=== PATIENT | female | born 1980 | race Caucasian/White ===

== ENCOUNTER 2019-11-08 16:31 | Emergency (ER) | payer OTHER, MEDICAID, SELFPAY ==
[2019-11-08 16:56] VITALS: BP 115/84; PULSE 100; RESP 16; TEMP 36.8; O2SAT 99
--- NOTE | 2019-11-08 17:54 | ED.URI ---
HPI - URI/Sore Throat General Chief Complaint: Upper Respiratory Infection Stated Complaint: ears chills and possible bladder infect Time Seen by Provider: 11/08/19 17:54 Source: patient and RN notes reviewed Mode of arrival: ambulatory Limitations: no limitations History of Present Illness HPI Narrative: 39-year-old female presents with concern for multiple complaints. She reports urinary frequency, right low back pain. Reports history of urinary tract infections and chronic cystitis without bacteria. Reports of symptoms started 2 days ago. She also reports more than 1 week history of sinus congestion, postnasal drip, purulent drainage, headache, ear fullness, ear pain. Reports taking nods-dht-rtuelqk medications with no relief MD elicited complaint: nasal congestion and other (Dysuria) Related Data Home Medications Medication Instructions Recorded Confirmed famotidine 20 mg PO BID 11/08/19 11/08/19 folic acid 1 mg PO DAILY 11/08/19 11/08/19 gabapentin 100 mg PO TID 11/08/19 11/08/19 hydroxyzine HCl 25 mg PO BID PRN 11/08/19 11/08/19 meloxicam 15 mg PO DAILY 11/08/19 11/08/19 methotrexate sodium 2.5 mg PO WEEKLY 11/08/19 11/08/19 nortriptyline 50 mg PO DAILY 11/08/19 11/08/19 Allergies Allergy/AdvReac Type Severity Reaction Status Date / Time Sulfa (Sulfonamide Allergy Intermediate Rash Verified 02/03/18 19:21 Antibiotics) ranitidine Allergy Unknown Itching Verified 02/03/18 19:21 Review of Systems Review of Systems: Narrative: CONSTITUTIONAL: Reports malaise, chills, sweats, tactile fever. EYES: Denies visual changes, redness, or discharge. ENT: Reports rhinorrhea, congestion, sinus pain, otalgia and sore throat. CARDIOVASCULAR: Denies chest pain, palpitations, or edema. RESPIRATORY: Reports cough. Denies dyspnea. GASTROINTESTINAL: Denies abdominal pain, nausea, vomiting, diarrhea : Reports urine frequency, right low back pain SKIN: Denies rash or itching. MUSCULOSKELETAL: Denies myalgia. NEUROLOGIC: Denies headache. All systems reviewed & are unremarkable except as noted in HPI and below PMFSH Comments At time of signature, agree with nursing past medical, surgical, social and family history. There is no relevant family history pertinent to the presenting complaint Exam Narrative: Exam Narrative: GENERAL: Well-appearing, well-nourished, and in no acute distress. HEAD: Normocephalic EYES: PERRLA, conjunctivae clear ENT: Nares clear, turbinates edematous and erythematous, purulent discharge, sinus tenderness. Mucous membranes moist. TM pearly esparza with dull light reflex bilaterally; no tragal tenderness. Oropharynx not erythematous without lesions. Tonsils not enlarged and without exudate, no drooling, no hoarseness, no trismus. NECK: Supple. No lymphadenopathy CHEST: Clear to auscultation, breath sounds equal. No wheezing, rhonchi, rales, or stridor. No respiratory distress, speaks in full sentences. HEART: Regular rate and rhythm. No murmur heard. Normal peripheral pulses. ABDOMEN: Soft, nontender upon palpation, nondistended, normal active bowel sounds, no palpable or pulsatile masses, no guarding. No CVA tenderness SKIN: Warm, dry, no rash. NEURO: Alert and oriented x3. PSYCH: Normal mood and affect Course Course Emergency Course: Patient is aware of diagnosis, understands and agrees to treatment plan. Anticipatory guidance given. Patient agrees to follow-up as directed and is aware of reasons to seek care at the emergency department. Portions of this record may have been created with voice recognition software Vital Signs Vital signs: Vital Signs Temperature 98.3 F 11/08/19 16:56 Pulse Rate 100 11/08/19 16:56 Respiratory Rate 16 11/08/19 16:56 Blood Pressure 115/84 11/08/19 16:56 Pulse Oximetry 99 11/08/19 16:56 Temperature 98.3 F 11/08/19 16:56 Pulse Rate 100 11/08/19 16:56 Respiratory Rate 16 11/08/19 16:56 Blood Pressure 115/84 11/08/19 16:56 Pulse Oximetry 99
== END 2019-11-08 18:05 | disposition home or self-care (01) ==
PROVIDERS: Emergency Provider Nurse Practitioner
DX: N30.20 Other chronic cystitis without hematuria (principal); J01.90 Acute sinusitis, unspecified
CPT/HCPCS: 81003; 87804; 99213; G0463

== ENCOUNTER → 2020-01-08 11:35 | Outpatient (CLI) | payer OTHER, MEDICAID, SELFPAY ==
--- NOTE | ~2020-01-08 | XR_ITS ---
XR foot LT min 3V 01/08/2020 11:50 INDICATION: Left foot pain PROCEDURE: 4 views left foot COMPARISON: No prior studies for comparison. FINDINGS: Fracture, dislocation or subluxation is not identified. There are small degenerative calcan eal enthesophytes. The soft tissues appear within normal limits. No foreign bodies are identified. IMPRESSION: 1: NO ACUTE BONE OR JOINT ABNORMALITY IDENTIFIED. Reviewed, dictated and finalized at location A.
== END ==
PROVIDERS: PCP Family Medicine; Visit Provider Family Medicine
DX: M79.673 Pain in unspecified foot (principal)
CPT/HCPCS: 73630

== ENCOUNTER → 2020-03-18 15:16 | Outpatient (CLI) | payer OTHER, MEDICAID, SELFPAY ==
--- NOTE | ~2020-03-18 | XR_ITS ---
EXAMINATION: XR chest 2V DATE: 03/18/2020 15:41 INDICATION: Dyspnea, unspecified TECHNIQUE: PA and lateral views of the chest are obtained. COMPARISON: None available FINDINGS: The lungs are free of acute opacities. There is no pleural effusion or pneumothorax. The ca rdiomediastinal silhouette is normal. There is mild dextrocurvature of the midthoracic spine. IMPRESSION: 1. No acute cardiopulmonary abnormality. Reviewed, dictated and finalized at location A.
== END ==
PROVIDERS: PCP Family Medicine; Visit Provider Family Medicine
DX: R06.00 Dyspnea, unspecified (principal)
CPT/HCPCS: 71046

== ENCOUNTER 2020-04-11 11:14 | Outpatient (CLI) | payer OTHER, MEDICAID, SELFPAY ==
[2020-04-11 13:51] LABS: Anion Gap 13.7 mmol/L (7-16); Blood Urea Nitrogen 11 mg/dL (7-17); Calcium 9.1 mg/dL (8.4-10.2); Carbon Dioxide 24 mmol/L (22-30); Chloride 103 mmol/L (98-107); Estimated Glomerular Filt Rate > 60; Glucose 94 mg/dL (65-105); Magnesium 2.2 mg/dL (1.6-2.3); Potassium 3.7 mmol/L (3.4-5.0); Sodium 137 mmol/L (137-145)
[2020-04-11 13:52] LABS: Basophils Percent Auto 0.5 % (0.2-1.2); Eosinophils Absolute Auto 0.1 K/mm3 (0-0.3); Eosinophils Percent Auto 1.1 % (0-4.4); Hematocrit 41.5 % (37.0-47.0); Hemoglobin 13.2 g/dL (12.0-15.0); Immature Granulocyte Absolute 0.02 K/mm3 (0.00-0.031); Immature Granulocyte Percent A 0.3 % (0-0.5); Lymphocytes Absolute Auto 1.55 K/mm3 (0.9-3.2); Lymphocytes Percent Auto 23.6 % (18.3-44.2); Mean Corpuscular HGB Conc 31.8 g/dl (32-36); Mean Corpuscular Hemoglobin 26.7 pg (26-34); Mean Platelet Volume 10.8 fl (7.4-10.4); Monocytes Absolute Auto 0.7 K/mm3 (0.1-0.6); Monocytes Percent Auto 10.2 % (2.6-8.5); Neutrophils Absolute Auto 4.2 K/mm3 (1.3-6.7); Neutrophils Percent Auto 64.3 % (45.5-73.1); Platelet Count Result 306 k/mm3 (150-375); Red Blood Count 4.94 M/mm3 (4.2-5.4); Red Cell Distribution Width 13.7 % (11.5-14.5); White Blood Count 6.6 K/mm3 (4.5-10.0)
[2020-04-11 13:56] LABS: Hemoglobin A1C 5.4 % (<5.7)
[2020-04-11 14:07] LABS: Beta HCG Quantitative < 2.39 mIU/ML
[2020-04-11 14:22] LABS: Thyroid Stimulating Hormone 0.556 uIU/mL (0.465-4.680)
[2020-04-16 12:32] LABS: Reference Lab Test Result Negative
== END 2020-04-11 11:15 | disposition home or self-care (01) ==
LOC: ANHLAB 11:16
PROVIDERS: PCP Family Medicine; Visit Provider Family Medicine
DX: R53.83 Other fatigue (principal); R06.02 Shortness of breath; E34.9 Endocrine disorder, unspecified; Z79.899 Other long term (current) drug therapy; E07.9 Disorder of thyroid, unspecified; L40.50 Arthropathic psoriasis, unspecified; T78.40XA Allergy, unspecified, initial encounter; R73.9 Hyperglycemia, unspecified
CPT/HCPCS: 36415; 80048; 83036; 83735; 84443; 84702; 85025; 86769

== ENCOUNTER 2020-04-17 15:03 | Outpatient (CLI) | payer OTHER, MEDICAID, SELFPAY ==
--- NOTE | ~2020-04-17 | CT_ITS ---
EXAMINATION: CT sinus wo con DATE: 04/17/2020 15:30 INDICATION: Congestion, shortness of breath, cough, ear pain. Chronic sinusitis. TECHNIQUE: Computed tomography angiography (CTA) of the chest was performed with 100 mL Omnipaque-350 intravenous contrast timed to evaluate the pulmonary arteries. Coronal maximum intensity projection 3D-reconstructions were created by the technologist. Automated exposure control and iterative reconst ruction technique were employed. Exam dose: 317.41 mGy-cm total exam DLP. Paranasal sinuses COMPARISON: None. FINDINGS: There is leftward deviation of the nasal septum. There is interlamellar cell of the middle nasal turbinates. The mesentery visceromegaly prominent but relatively symmetric in size. The ostiomeatal units are patent. There is an approximately 1.3 cm soft tissue opacity in the right frontal ostium. The frontal sinuses are otherwise unremarkable. There is an approximately 9 mm mucous retention cyst or polyp of the right maxillary sinus at the pos terior margin of the right maxillary ostium and a small mucus retention cyst or polyp along the roof of the right maxillary sinus. The left maxillary sinus is clear. The ethmoid air cells and left sphen oid sinuses are unremarkable. There is a small mucus retention cyst cyst or polyp along the anterolat eral aspect of the right sphenoid sinus.. The mastoid air cells are normally developed and aerated. IMPRESSION: Polyps or mucous retention cysts of right frontal sinus, right maxillary and right sphen oid sinuses Leftward deviation of the nasal septum Reviewed, dictated and finalized at Location A. Reviewed, dictated and finalized at location B. IMPRESSION: Polyps or mucous retention cysts of right frontal sinus, right max illary and right sphenoid sinuses Leftward deviation of the nasal septum
== END 2020-04-17 15:04 | disposition home or self-care (01) ==
PROVIDERS: PCP Family Medicine; Visit Provider Family Medicine
DX: J32.9 Chronic sinusitis, unspecified (principal); J34.2 Deviated nasal septum
CPT/HCPCS: 70486

== ENCOUNTER 2020-04-25 09:54 | Outpatient (CLI) | payer OTHER, MEDICAID, SELFPAY ==
--- NOTE | ~2020-04-25 | XR_ITS ---
XR hand BI arthritis min 3V DATE: 04/25/2020 10:31 INDICATION: Hand pain. Unspecified osteoarthritis. TECHNIQUE: 4 views of each hand COMPARISON: None FINDINGS: No fracture or dislocation, periosteal reaction or bone destruction, erosive change or jun drocalcinosis. Joint spaces are preserved. IMPRESSION: No significant abnormality Reviewed, dictated and finalized at location A. IMPRESSION: No significant abnormality
--- NOTE | ~2020-04-25 | XR_ITS ---
XR sacroiliac joints min 3V DATE: 04/25/2020 10:31 INDICATION: Arthropathic psoriasis TECHNIQUE: AP and bilateral oblique views COMPARISON: None FINDINGS: There is asymmetric mild sclerosis along the right sacroiliac joint which is consistent wit h nonspecific mild right sacroiliitis. The left sacroiliac joint is unremarkable. No sacral fracture or bone destruction is evident. IMPRESSION: Asymmetric sclerosis at the right sacroiliac joint consistent with nonspecific unilateral right sacroiliitis Reviewed, dictated and finalized at Location A. Reviewed, dictated and finalized at location A.
--- NOTE | ~2020-04-25 | XR_ITS ---
XR foot LT standing 2V DATE: 04/25/2020 10:31 INDICATION: Heel pain for one week. No injury. TECHNIQUE: Weightbearing AP and lateral views COMPARISON: 01/08/2020 left foot FINDINGS: There is mild posterior and plantar calcaneal enthesopathy, without associated periostitis or erosive change. No fracture or dislocation, periosteal reaction or bone destruction of the left foot. Joint spaces ar e preserved. No erosions. IMPRESSION: Mild plantar and posterior calcaneal enthesopathy Reviewed, dictated and finalized at location A.
--- NOTE | ~2020-04-25 | XR_ITS ---
XR foot RT standing 2V DATE: 04/25/2020 10:31 INDICATION: Arthropathic psoriasis. TECHNIQUE: Weightbearing AP and lateral views COMPARISON: None FINDINGS: No fracture or dislocation, periosteal reaction or bone destruction. IMPRESSION: Negative Reviewed, dictated and finalized at location A. IMPRESSION: Negative
[2020-04-25 11:10] LABS: Rheumatoid Factor < 8.6 IU/ML (<12)
[2020-04-25 12:02] LABS: Hepatitis B Surface Antigen Negative (Negative)
[2020-04-25 12:20] LABS: Hepatitis B Surface Antibody > 1000.00 s/c; Hepatitis C Virus Antibody Negative (Negative)
[2020-04-25 13:06] LABS: Hepatitis B Surface Anti Res Positive
[2020-04-29 05:04] LABS: Angiotensin Converting Enzyme 24 U/L (9-67)
[2020-04-29 11:20] LABS: Anti Cyclic Citrullinated Pept <16 Units (<20)
[2020-04-29 19:15] LABS: Hepatitis B Core Ab Total Nonreactive (Nonreactive)
[2020-05-01 07:01] LABS: Anti Nuclear Antibody Pattern Nuclear, Speckled; Anti Nuclear Antibody Titer 1:40 (Negative)
== END 2020-04-25 09:55 | disposition home or self-care (01) ==
LOC: ANHIMG 09:58
PROVIDERS: PCP Family Medicine; Visit Provider Internal Medicine
DX: L40.50 Arthropathic psoriasis, unspecified (principal); M19.90 Unspecified osteoarthritis, unspecified site; M77.32 Calcaneal spur, left foot
CPT/HCPCS: 36415; 72202; 73130; 73620; 82164; 86038; 86039; 86200; 86430; 86704; 86706; 86803; 87340

== ENCOUNTER 2020-05-02 15:09 | Outpatient (CLI) | payer OTHER, MEDICAID, SELFPAY ==
[2020-05-02 15:26] LABS: Basophils Percent Auto 0.3 % (0.2-1.2); Eosinophils Absolute Auto 0.1 K/mm3 (0-0.3); Eosinophils Percent Auto 0.7 % (0-4.4); Hematocrit 41.1 % (37.0-47.0); Hemoglobin 13.1 g/dL (12.0-15.0); Immature Granulocyte Absolute 0.06 K/mm3 (0.00-0.031); Immature Granulocyte Percent A 0.7 % (0-0.5); Lymphocytes Absolute Auto 2.05 K/mm3 (0.9-3.2); Lymphocytes Percent Auto 22.5 % (18.3-44.2); Mean Corpuscular HGB Conc 31.9 g/dl (32-36); Mean Corpuscular Hemoglobin 27.1 pg (26-34); Mean Corpuscular Volume 84.9 fl (80-100); Mean Platelet Volume 9.9 fl (7.4-10.4); Monocytes Absolute Auto 0.8 K/mm3 (0.1-0.6); Monocytes Percent Auto 8.4 % (2.6-8.5); Neutrophils Absolute Auto 6.2 K/mm3 (1.3-6.7); Neutrophils Percent Auto 67.4 % (45.5-73.1); Platelet Count Result 341 k/mm3 (150-375); Red Blood Count 4.84 M/mm3 (4.2-5.4); Red Cell Distribution Width 13.6 % (11.5-14.5); White Blood Count 9.1 K/mm3 (4.5-10.0)
[2020-05-09 00:53] LABS: Immunoglobulin E 51 kU/L (<=114)
== END 2020-05-02 15:10 | disposition home or self-care (01) ==
LOC: ANHLAB 15:12
PROVIDERS: PCP Family Medicine; Visit Provider Internal Medicine Critical Care Medicine
DX: R06.02 Shortness of breath (principal)
CPT/HCPCS: 36415; 82785; 85025

== ENCOUNTER 2020-05-19 11:26 | Emergency (ER) | payer OTHER, MEDICAID, SELFPAY ==
[2020-05-19 11:27] VITALS: BP 110/70; PULSE 87; RESP 21; TEMP 36.4; O2SAT 100
[2020-05-19 12:14] LABS: Basophils Percent Auto 0.3 % (0.2-1.2); Eosinophils Absolute Auto 0.1 K/mm3 (0-0.3); Eosinophils Percent Auto 0.8 % (0-4.4); Hematocrit 36.8 % (37.0-47.0); Hemoglobin 11.6 g/dL (12.0-15.0); Immature Granulocyte Absolute 0.03 K/mm3 (0.00-0.031); Immature Granulocyte Percent A 0.4 % (0-0.5); Lymphocytes Percent Auto 21.9 % (18.3-44.2); Mean Corpuscular HGB Conc 31.5 g/dl (32-36); Mean Corpuscular Hemoglobin 26.9 pg (26-34); Mean Corpuscular Volume 85.2 fl (80-100); Mean Platelet Volume 10.2 fl (7.4-10.4); Monocytes Absolute Auto 0.7 K/mm3 (0.1-0.6); Monocytes Percent Auto 9.1 % (2.6-8.5); Neutrophils Absolute Auto 5.2 K/mm3 (1.3-6.7); Neutrophils Percent Auto 67.5 % (45.5-73.1); Platelet Count Result 314 k/mm3 (150-375); Red Blood Count 4.32 M/mm3 (4.2-5.4); Red Cell Distribution Width 13.9 % (11.5-14.5); White Blood Count 7.8 K/mm3 (4.5-10.0)
[2020-05-19] MEDS: ONDANSETRON INJ 4 MG/2 ML VIAL IV PUSH (12:15)
[2020-05-19] MEDS: FAMOTIDINE 20 MG/2 ML VIAL IV PUSH (12:15)
[2020-05-19] MEDS: SODIUM CHLORIDE 0.9% IV 1,000 ML 999 ML IV CONT (12:16)
[2020-05-19 12:25] LABS: Alanine Aminotransferase 36 U/L (4-35); Alkaline Phosphatase 76 U/L (38-126); Anion Gap 5 mmol/L (8-16); Aspartate Amino Transferase 21 U/L (14-36); Bilirubin,Total 0.3 mg/dL (0.2-1.3); Blood Urea Nitrogen 10 mg/dL (7-17); Calcium 8.8 mg/dL (8.4-10.2); Carbon Dioxide 25 mmol/L (22-30); Chloride 106 mmol/L (98-107); Estimated CRCL calculation 76 ml/min; Estimated Glomerular Filt Rate > 60; Glucose 99 mg/dL (65-105); Lipase 194 U/L (23-300); Sodium 136 mmol/L (137-145)
[2020-05-19 12:39] LABS: Add Urine Microscopic? YES; Appearance Urine Cloudy (Clear); Bacteria Urine 4+ /hpf; Bilirubin Urine Negative (Negative); Blood Urine 1+ (Negative); Color Urine Yellow (Yellow); Glucose Urine UA Negative (Negative); Ketones Urine Negative (Negative); Leukocyte Esterase Ur Negative LEU/UL (Negative); Mucus Urine Heavy /lpf; Nitrate Urine Negative (Negative); Protein Urine 1+ mg/dL (Negative); RBC Urine 0-2 /hpf (0-2); Specific Grav Ur 1.015 (1.001-1.035); Squamous Epithelial Cell Urine Many /hpf (Few); Urobilinogen Urine Negative mg/dL (<2.0)
--- NOTE | 2020-05-19 14:06 | ED.ABDPAIN ---
HPI - Abdominal Pain General Chief Complaint: Abdominal Pain <ADRIEL Mitchell Last Filed: 05/19/20 14:10> Stated Complaint: ABD Pain <ADRIEL Mitchell Last Filed: 05/19/20 14:10> Time Seen by Provider: 05/19/20 11:33 <ADRIEL Mitchell Last Filed: 05/19/20 14:10> Source: patient <ADRIEL Mitchell Last Filed: 05/19/20 14:10> Mode of arrival: ambulatory <ADRIEL Mitchell Last Filed: 05/19/20 14:10> Limitations: no limitations <ADRIEL Mitchell Last Filed: 05/19/20 14:10> History of Present Illness HPI narrative: Patient is a 40-year-old female who presents to emergency department for evaluation of abdominal pain that worsened today has chronic abdominal pain that has been present for years has seen multiple specialists for this with no etiology notes that it is worse with food patient also notes discomfort in the chest which is also chronic in nature patient on arrival notes discomfort in the upper abdomen denies vomiting diarrhea or other complaints and is in no distress upon arrival but does appear uncomfortable <ADRIEL Mitchell Last Filed: 05/19/20 14:10> Related Data Home Medications: Home Medications Medication Instructions Recorded Confirmed cholecalciferol (vitamin D3) 25 25 mcg PO DAILY 12/27/19 04/25/20 mcg (1,000 unit) capsule polyethylene glycol 3350 17 17 gm PO DAILY 12/27/19 04/25/20 gram/dose oral powder calcium carbonate 600 mg calcium 600 mg PO DAILY 05/02/20 (1,500 mg) tablet magnesium 250 mg tablet 250 mg PO DAILY 05/02/20 mecobalamin (vitamin B12) 5,000 2,500 mcg PO DAILY each 05/02/20 mcg lozenge multivitamin 1 cap PO DAILY 05/02/20 famotidine DAILY 05/19/20 <ADRIEL Mitchell Last Filed: 05/19/20 14:10> Allergies/Adverse Reactions: Allergies Allergy/AdvReac Type Severity Reaction Status Date / Time Sulfa (Sulfonamide Allergy Intermediate Rash Verified 05/19/20 12:19 Antibiotics) ranitidine Allergy Unknown Itching Verified 05/19/20 12:19 hydrocodone [From Vicodin] AdvReac Unknown Insomnia Verified 05/19/20 12:19 <Ash Santana PA-C - Last Filed: 05/19/20 14:10> Review of Systems Review of Systems: All systems reviewed & are unremarkable except as noted in HPI and below <Ash Santana PA-C - Last Filed: 05/19/20 14:10> PMFSH Past Medical History Medical History: Medical History Allergies Endometriosis Hypersomnia Interstitial cystitis Lump in armpit Lung nodule Psoriatic arthritis Sinusitis Snoring Thyroid disorder <Ash Santana PA-C - Last Filed: 05/19/20 14:10> Surgical History Surgical History: Surgical History Delivery by section <Ash Santana PA-C - Last Filed: 05/19/20 14:10> Social History Social History: Social History Social History: , one daughter, works at [employer]. Smoking status: Never smoker Alcohol intake: current Additional occupation/education comments: [employer]ors [employer] Gender identity (if verbalized by the patient): Female <Ash Santana PA-C - Last Filed: 05/19/20 14:10> Exam Narrative: Exam Narrative: GENERAL: Well-appearing, well-nourished, and in no acute distress. HEAD: Normocephalic, atraumatic. EYES: PERRLA and EOMI. ENT: Nares clear, no rhinorrhea or epistaxis. Mucous membranes moist. CHEST: Clear to auscultation. No respiratory distress. No wheezes rales or rhonchi HEART: Regular rate and rhythm. No murmur heard. Normal peripheral pulses. ABDOMEN: Soft, tenderness in the upper quadrants of the abdomen no rebound or guarding, nondistended, normal active bowel sounds. EXTREMITIES: Normal range of motion. No edema. SKIN: Warm, dry, no rash. NEURO: No focal deficits. Alert and or
[2020-05-19] MEDS: KETOROLAC 30 MG/ML VIAL (*BKC) IV PUSH (14:18)
[2020-05-19 14:19] VITALS: BP 110/80; PULSE 80; RESP 16; O2SAT 100
== END 2020-05-19 14:30 | disposition home or self-care (01) ==
PROVIDERS: Emergency Medicine Emergency Medical Services; Emergency Provider Emergency Medicine; PCP Family Medicine
DX: R10.9 Unspecified abdominal pain (principal)
CPT/HCPCS: 36415; 80053; 81001; 83690; 85025; 96361; 96374; 96375; 99284; J1885; J2405; J7030

== ENCOUNTER 2020-05-24 13:04 | Emergency (ER) | payer OTHER, MEDICAID, SELFPAY ==
--- NOTE | ~2020-05-24 | US_ITS ---
EXAMINATION: US right upper quadrant DATE: 05/24/2020 15:01 INDICATION: Right upper quadrant abdominal pain. Nausea and diarrhea. TECHNIQUE: Multiple grayscale and Doppler ultrasound images of the abdomen were obtained. COMPARISON: None FINDINGS: The visualized portions of the head, body, and tail of the pancreas are normal. The liver i s normal without focal lesion. There is normal flow in main portal vein. The gallbladder is normal in size. No gallstones or gallbladder wall thickening. There was no sonographic Miller sign. The common duct is normal and measures 3 mm. IMPRESSION: 1. Normal right upper quadrant ultrasound. Reviewed, dictated and finalized at location A.
--- NOTE | ~2020-05-24 | CT_ITS ---
EXAMINATION: CT abdomen pelvis w con DATE: 05/24/2020 17:55 INDICATION: Epigastric abdominal pain. TECHNIQUE: Computed tomography (CT) of the abdomen and pelvis was performed with 100 mL Omnipaque 350 intravenous contrast. Automated exposure control and iterative reconstruction technique were employe d. The dose-length product was 425.25 mGy-cm. COMPARISON: Ultrasound 05/24/2020 FINDINGS: The visualized portions of the lung bases are clear without pneumonia or pleural effusion. The heart size is normal. No pericardial effusion. The liver, gallbladder, spleen, pancreas, and adre nal glands are normal. There are cysts in the kidneys measuring up to 5 mm on the left. There are no dilated loops of bowel. The appendix is normal. There are no pathologically enlarged lymph nodes. The re is no free intraperitoneal fluid. There is a small right inguinal hernia containing fat. There is levoscoliosis of thoracolumbar spine. IMPRESSION: 1. Small right inguinal hernia containing fat. Reviewed, dictated and finalized at location A.
[2020-05-24 13:09] VITALS: BP 118/86; PULSE 77; RESP 18; TEMP 36.8; O2SAT 100
[2020-05-24 14:03] LABS: Basophils Percent Auto 0.4 % (0.2-1.2); Eosinophils Absolute Auto 0.1 K/mm3 (0-0.3); Eosinophils Percent Auto 1.1 % (0-4.4); Hemoglobin 11.1 g/dL (12.0-15.0); Immature Granulocyte Absolute 0.04 K/mm3 (0.00-0.031); Immature Granulocyte Percent A 0.5 % (0-0.5); Lymphocytes Absolute Auto 1.74 K/mm3 (0.9-3.2); Lymphocytes Percent Auto 23.3 % (18.3-44.2); Mean Corpuscular HGB Conc 31.7 g/dl (32-36); Mean Corpuscular Hemoglobin 26.8 pg (26-34); Mean Corpuscular Volume 84.5 fl (80-100); Mean Platelet Volume 9.7 fl (7.4-10.4); Monocytes Absolute Auto 0.7 K/mm3 (0.1-0.6); Monocytes Percent Auto 9.9 % (2.6-8.5); Neutrophils Absolute Auto 4.9 K/mm3 (1.3-6.7); Neutrophils Percent Auto 64.8 % (45.5-73.1); Platelet Count Result 284 k/mm3 (150-375); Red Blood Count 4.14 M/mm3 (4.2-5.4); White Blood Count 7.5 K/mm3 (4.5-10.0)
[2020-05-24 14:10] LABS: Add Urine Microscopic? NO; Appearance Urine Clear (Clear); Bilirubin Urine Negative (Negative); Blood Urine Negative (Negative); Color Urine Yellow (Yellow); Glucose Urine UA Negative (Negative); Ketones Urine Negative (Negative); Leukocyte Esterase Ur Negative LEU/UL (Negative); Mucus Urine Rare /lpf; Nitrate Urine Negative (Negative); Protein Urine Negative (Negative); Specific Grav Ur 1.012 (1.001-1.035); Squamous Epithelial Cell Urine Many /hpf (Few); Urobilinogen Urine Negative mg/dL (<2.0); WBC Urine 0-3 /hpf
[2020-05-24 14:17] LABS: Alanine Aminotransferase 33 U/L (4-35); Albumin Level 3.9 g/dL (3.5-5.1); Alkaline Phosphatase 77 U/L (38-126); Anion Gap 7 mmol/L (8-16); Aspartate Amino Transferase 21 U/L (14-36); Bilirubin,Total 0.4 mg/dL (0.2-1.3); Blood Urea Nitrogen 11 mg/dL (7-17); Calcium 8.4 mg/dL (8.4-10.2); Carbon Dioxide 23 mmol/L (22-30); Chloride 107 mmol/L (98-107); Estimated CRCL calculation 66 ml/min; Estimated Glomerular Filt Rate > 60; Glucose 97 mg/dL (65-105); Lipase 143 U/L (23-300); Potassium 3.9 mmol/L (3.4-5.0); Sodium 137 mmol/L (137-145)
--- NOTE | 2020-05-24 15:15 | ED.ABDPAIN ---
HPI - Abdominal Pain General Chief Complaint: Abdominal Pain Stated Complaint: CP/abd p/back pain Time Seen by Provider: 05/24/20 13:14 Source: patient Mode of arrival: ambulatory Limitations: no limitations History of Present Illness HPI narrative: 40-year-old female Complains of abdominal pain and chest pain which began months ago and have persisted She went to [facility] previously had a CT scan done of her chest and has subsequently been scheduled to follow-up with Dr. Turner with regards to those results Her concern today is more about epigastric pain which sounds like it may have been the same issue then and likewise longstanding She has pain in her upper abdomen which radiates around to her back Sometimes is worse after eating, sometimes has a bloated feeling, sometimes has nausea She denies a fever urinary symptoms or [employer] symptoms, had no vomiting and no diarrhea She was seen in the ER here once before since it was day advised to continue famotidine and follow-up with her PCP with regards to a possible gallbladder ultrasound which she has yet to accomplish She has scheduled with Dr Chelita VILLEDA elicited complaint: abdominal pain Pertinent past history: none Onset (ago): month(s) Pain Consistency: intermittent Location: epigastric Severity: moderate Radiation: back Exacerbating factors: eating Relieving factors: nothing Associated symptoms: denies other symptoms Related Data Home Medications Medication Instructions Recorded Confirmed cholecalciferol (vitamin D3) 25 25 mcg PO DAILY 12/27/19 04/25/20 mcg (1,000 unit) capsule polyethylene glycol 3350 17 17 gm PO DAILY 12/27/19 04/25/20 gram/dose oral powder calcium carbonate 600 mg calcium 600 mg PO DAILY 05/02/20 (1,500 mg) tablet magnesium 250 mg tablet 250 mg PO DAILY 05/02/20 mecobalamin (vitamin B12) 5,000 2,500 mcg PO DAILY each 05/02/20 mcg lozenge multivitamin 1 cap PO DAILY 05/02/20 famotidine DAILY 05/19/20 Allergies Allergy/AdvReac Type Severity Reaction Status Date / Time Sulfa (Sulfonamide Allergy Intermediate Rash Verified 05/19/20 12:19 Antibiotics) ranitidine Allergy Unknown Itching Verified 05/19/20 12:19 hydrocodone [From Vicodin] AdvReac Unknown Insomnia Verified 05/19/20 12:19 Review of Systems Review of Systems: All systems reviewed & are unremarkable except as noted in HPI and below Constitutional: Constitutional: Denies chills, Denies fatigue, Denies fever(s), Denies headache(s) and Denies night sweats Eyes: Eyes: Denies change in vision, Denies loss of vision and Denies other visual disturbances ENT: Denies headache(s), Denies hoarseness, Denies epistaxis, Denies nasal congestion and Denies sore throat Cardiovascular: Cardiovascular: Denies chest pain, Denies leg edema, Denies palpitations and Denies dyspnea Respiratory: Respiratory: Denies cough, Denies dyspnea and Denies wheezing Gastrointestinal: Gastrointestinal: Reports as per HPI Genitourinary: Genitourinary: Denies abnormal vaginal bleeding, Denies hematuria, Denies urinary frequency and Denies dysuria Musculoskeletal: Musculoskeletal: Reports no additional musculoskeletal complaints, Denies abnormal gait, Denies deformity, Denies muscle weakness and Denies numbness Integumentary/Breasts: Skin/Breast: Denies rash, Denies unusual bruising and Denies wounds Neurologic: Denies abnormal gait, Denies headache(s), Denies focal weakness, Denies loss of vision and Denies numbness Psychiatric: Psychiatric: Reports no additional psychiatric complaints Endocrine: Endocrine: Denies fatigue and Denies palpitations Hematologic/Lymphatic: Hematologic/Lymphatic: Denies easy bleeding and Denies easy bruising Allergic/Immunologic: Allergic/Immunologic: Denies wheezing [facility] [place] Social History Social History Social History: , one daughter, works at [employer]. Smoking status: Never smok
[2020-05-24] MEDS: DICYCLOMINE HCL INJ 20 MG/2 ML VIAL IM (15:49)
[2020-05-24 15:50] VITALS: BP 118/75; PULSE 75; RESP 16; O2SAT 99
--- NOTE | 2020-05-24 17:23 | PC.NURSE ---
ATTEMPTED TO D/C PT, PT COMPLAINING THAT SHE IS STILL HAVING PAIN AND WILL BE GOING TO [place] TOMORROW BECAUSE SHE HAS BEEN TO THE ER TWICE AND TO [facility] THIS WEEK FOR HER 2 MONTH INTERMITENT ABD PAIN AND IS VERY UPSET THAT NO ONE IS GIVING HER ANSWERS. I ENCOURAGED TO PT CALL HER GI DOC TO SEE ABOUT GETTING HER F/U APPOINTMENT MOVED UP, PT NOT HAPPY WITH THAT RECCOMENDATION. ASKED TO SPEAK WITH MANAGER EQUIPMENT. HAYLEE LOU AT BEDSIDE AT THIS TIME.
--- NOTE | 2020-05-24 17:33 | PC.NURSE ---
HEATER TENDERHAYLEE LOU STATES THAT SHE WILL BE SPEAKING WITH SIDNEY CAMARGO ABOUT PT REQUEST FOR CT CHEST/ABD/PELVIS
[2020-05-24 18:07] VITALS: BP 138/75; PULSE 78; RESP 16; O2SAT 100
== END 2020-05-24 18:08 | disposition home or self-care (01) ==
PROVIDERS: Emergency Provider Emergency Medicine; PCP Family Medicine
DX: G89.29 Other chronic pain (principal); R10.13 Epigastric pain
CPT/HCPCS: 36415; 74177; 76705; 80053; 81003; 81025; 83690; 85025; 96372; 99284; J0500; Q9967

== ENCOUNTER 2020-05-27 08:12 | Outpatient (CLI) | payer OTHER, MEDICAID, SELFPAY ==
[2020-05-27 08:51] LABS: Basophils Percent Auto 0.3 % (0.2-1.2); Eosinophils Absolute Auto 0.1 K/mm3 (0-0.3); Eosinophils Percent Auto 1.7 % (0-4.4); Hematocrit 39.8 % (37.0-47.0); Hemoglobin 12.5 g/dL (12.0-15.0); Immature Granulocyte Absolute 0.03 K/mm3 (0.00-0.031); Immature Granulocyte Percent A 0.5 % (0-0.5); Immature Reticulocyte Fraction 11.4 % (3.0-15.9); Lymphocytes Absolute Auto 1.48 K/mm3 (0.9-3.2); Lymphocytes Percent Auto 24.8 % (18.3-44.2); Mean Corpuscular HGB Conc 31.4 g/dl (32-36); Mean Corpuscular Hemoglobin 26.7 pg (26-34); Mean Corpuscular Volume 84.9 fl (80-100); Mean Platelet Volume 10.2 fl (7.4-10.4); Monocytes Absolute Auto 0.6 K/mm3 (0.1-0.6); Monocytes Percent Auto 9.4 % (2.6-8.5); Neutrophils Absolute Auto 3.8 K/mm3 (1.3-6.7); Neutrophils Percent Auto 63.3 % (45.5-73.1); Platelet Count Result 332 k/mm3 (150-375); Red Blood Count 4.69 M/mm3 (4.2-5.4); Red Cell Distribution Width 13.9 % (11.5-14.5); Reticulocyte Hemoglobin Conten 30.2 pg (28.2-35.7); Reticulocyte Percent 1.55 % (0.7-4.3); Reticulocytes Absolute 0.07 B/L (32.2-175.7)
[2020-05-27 09:19] LABS: Iron 51 ug/dL (37-170)
[2020-05-27 09:29] LABS: Percent Iron Saturation 12 % (20-50)
[2020-05-27 10:29] LABS: Folic Acid 10.2 ng/mL (2.76->20)
[2020-05-30 04:53] LABS: Haptoglobin 233 mg/dL (43-212)
== END 2020-05-27 08:13 | disposition home or self-care (01) ==
PROVIDERS: PCP Family Medicine; Visit Provider Family Medicine
DX: R06.02 Shortness of breath (principal); R53.83 Other fatigue; D64.9 Anemia, unspecified; Z79.899 Other long term (current) drug therapy; L40.50 Arthropathic psoriasis, unspecified
CPT/HCPCS: 36415; 82607; 82746; 83010; 83540; 83550; 85025; 85046

== ENCOUNTER 2020-06-03 12:40 | Outpatient (CLI) | payer OTHER, MEDICAID, SELFPAY ==
--- NOTE | ~2020-06-03 | US_ITS ---
EXAMINATION: US pelvic complete DATE: 06/03/2020 13:04 INDICATION: Endometriosis. Uterine and vaginal bleeding. Comparison:No prior studies for comparison. TECHNIQUE: Multiple transabdominal and endovaginal sonographic images of the pelvis performed. FINDINGS: The uterus measures 6.9 x 2.9 x 4.9 cm. The endometrial complex measures 11 mm. The left ovary measures 3.4 x 2 x 2.6 cm. Right ovary not visualized. No free fluid. There is no free fluid in the pelvis. There are no abnormal masses seen on either side. IMPRESSION: 1. Unremarkable pelvic ultrasound. Reviewed, dictated and finalized at location A.
[2020-06-03 14:23] LABS: Basophils Percent Auto 0.2 % (0.2-1.2); Eosinophils Absolute Auto 0.1 K/mm3 (0-0.3); Eosinophils Percent Auto 0.7 % (0-4.4); Hematocrit 40.3 % (37.0-47.0); Hemoglobin 12.6 g/dL (12.0-15.0); Immature Granulocyte Absolute 0.04 K/mm3 (0.00-0.031); Immature Granulocyte Percent A 0.5 % (0-0.5); Lymphocytes Absolute Auto 2.28 K/mm3 (0.9-3.2); Lymphocytes Percent Auto 27.6 % (18.3-44.2); Mean Corpuscular HGB Conc 31.3 g/dl (32-36); Mean Corpuscular Hemoglobin 26.8 pg (26-34); Mean Corpuscular Volume 85.6 fl (80-100); Mean Platelet Volume 10.4 fl (7.4-10.4); Monocytes Absolute Auto 0.8 K/mm3 (0.1-0.6); Monocytes Percent Auto 9.1 % (2.6-8.5); Neutrophils Absolute Auto 5.1 K/mm3 (1.3-6.7); Neutrophils Percent Auto 61.9 % (45.5-73.1); Platelet Count Result 335 k/mm3 (150-375); Red Blood Count 4.71 M/mm3 (4.2-5.4); Red Cell Distribution Width 13.8 % (11.5-14.5); Reticulocyte Hemoglobin Conten 30.9 pg (28.2-35.7); Reticulocyte Percent 1.51 % (0.7-4.3); Reticulocytes Absolute 0.07 B/L (32.2-175.7); White Blood Count 8.3 K/mm3 (4.5-10.0)
[2020-06-03 14:34] LABS: Add Urine Microscopic? YES; Appearance Urine Cloudy (Clear); Bacteria Urine Trace /hpf; Bilirubin Urine Negative (Negative); Blood Urine 1+ (Negative); Color Urine Yellow (Yellow); Glucose Urine UA Negative (Negative); Ketones Urine Negative (Negative); Leukocyte Esterase Ur Negative LEU/UL (NEGATIVE); Nitrate Urine Negative (Negative); Protein Urine Negative (Negative); RBC Urine 0-2 /hpf (0-2); Squamous Epithelial Cell Urine Many /hpf (Few); Urobilinogen Urine Negative mg/dL (<2.0)
[2020-06-03 14:36] LABS: Specific Grav Ur 1.003 (1.001-1.035)
[2020-06-03 14:47] LABS: Anion Gap 8 mmol/L (8-16); Blood Urea Nitrogen 9 mg/dL (7-17); Calcium 9.2 mg/dL (8.4-10.2); Carbon Dioxide 23 mmol/L (22-30); Chloride 107 mmol/L (98-107); Estimated Glomerular Filt Rate > 60; Glucose 98 mg/dL (65-105); Iron 88 ug/dL (37-170); Magnesium 2.2 mg/dL (1.6-2.3); Potassium 4.3 mmol/L (3.4-5.0); Sodium 138 mmol/L (137-145)
[2020-06-03 14:56] LABS: Percent Iron Saturation 21 % (20-50)
[2020-06-03 15:19] LABS: Thyroid Stimulating Hormone 0.579 uIU/mL (0.465-4.680)
[2020-06-03 15:56] LABS: Folic Acid > 20.0 ng/mL (2.76->20)
[2020-06-08 08:13] LABS: C-Peptide 1.26 ng/mL (0.80-3.85)
[2020-06-09 04:12] LABS: Insulin Level Total 6.2 uIU/mL (<=19.6)
[2020-06-09 17:12] LABS: Haptoglobin 233 mg/dL (43-212)
== END 2020-06-03 12:41 | disposition home or self-care (01) ==
LOC: ANHIMG 12:42
PROVIDERS: PCP Family Medicine; Visit Provider Family Medicine
DX: N93.8 Other specified abnormal uterine and vaginal bleeding (principal); E34.9 Endocrine disorder, unspecified; R53.83 Other fatigue; Z79.899 Other long term (current) drug therapy; E07.9 Disorder of thyroid, unspecified; L40.50 Arthropathic psoriasis, unspecified; R73.9 Hyperglycemia, unspecified; T78.40XA Allergy, unspecified, initial encounter; R06.02 Shortness of breath; R31.29 Other microscopic hematuria; D64.9 Anemia, unspecified
CPT/HCPCS: 36415; 76856; 80048; 81001; 82607; 82746; 83010; 83525; 83540; 83550; 83735; 84443; 84681; 85025; 85046; 87086; 87088

== ENCOUNTER 2020-06-06 09:28 | Outpatient (CLI) | payer OTHER, MEDICAID, SELFPAY ==
--- NOTE | 2020-06-12 14:24 | WPDPFTINT ---
PFT Interpretation PFT Interpretation: This PFT did not meet all criteria for ATS standards and reproducibility. Specifically, the patient was not able to perform Spirometry properly Spirometry results may be inaccuarate due poor patient effort or reporoducibility TLC 67% RV 44 % RV/TLC 21% DLCO 68% when adjusted for alveolar volume but not adjusted for hemoglobin Impression: PFT is in accurate due to poor patient effort. Repeat if clinically indicated.
== END 2020-06-06 09:29 | disposition home or self-care (01) ==
LOC: ANHPFT 09:30
PROVIDERS: PCP Family Medicine; Visit Provider Internal Medicine Critical Care Medicine
DX: R06.02 Shortness of breath (principal)
CPT/HCPCS: 94060; 94726; 94729

== ENCOUNTER 2020-06-09 09:49 | Outpatient (CLI) | payer OTHER, MEDICAID, SELFPAY ==
--- NOTE | ~2020-06-09 | NM_ITS ---
EXAMINATION: NM hepatobiliary w pharm EXAM DATE: 06/09/2020 12:00 INDICATION: Right upper quadrant pain. TECHNIQUE: 4.8 mCi Tc-99m mebrofenin (Choletec) was administered intravenously. Scintigraphic images of the abdomen were obtained for one hour. At the 1 hour time point, 1.4 mcg sincalide (Kinevac) was administered by slow intravenous infusion, and imaging was continued for 30 minutes. Gallbladder eje ction fraction was calculated by the technologist. There is no prior study for comparison. FINDINGS: There is normal clearance of radiotracer from the blood pool. There is homogeneous tracer u ptake by the liver. Activity progresses to the gallbladder and bowel. The gallbladder ejection fract ion (GBEF) is 78 % (most patients with gallbladder dysfunction have GBEF < 35%, but there is overlap with the normal range of 10-90%). IMPRESSION: Gallbladder ejection fraction 78%, within normal range. Reviewed, dictated and finalized at location A.
== END 2020-06-09 09:50 | disposition home or self-care (01) ==
LOC: ANHIMG 09:50
PROVIDERS: PCP Family Medicine; Visit Provider Internal Medicine Gastroenterology
DX: R10.11 Right upper quadrant pain (principal)
CPT/HCPCS: 78227; A9537; J2805

== ENCOUNTER 2020-06-11 07:14 | Outpatient (CLI) | payer OTHER, MEDICAID, SELFPAY ==
--- NOTE | 2020-07-09 10:24 | WPDHOMESLEEP ---
Sleep Study - Home Date of Study: 06/11/20 Ordering Provider: Mitra Turner MD Interpreting Physician: Mitra Turner MD Home Sleep Study Type: Apnea Link Air Height: 1.57 m Weight: 68.039 kg Body Mass Index: 27.4 Neck Circumference (inches): 15 Holly: 18 Reason for Sleep Study excessive sleepiness Sleep History Lynne Liang is 40 yo female 5 ft 2 in tall 150 lb with a body mass index of 27.5. She has had many years of excessive sleepiness, has always been more sleepy than other people, dating back to grade school. Her mother would say, Get up and go do something, which was really hard to do because she was so sleepy most of the time. She finished high school, she was sleepy during school. Her social activities were limited by her excessive sleepiness. Her sleep is really fragmented. She tries to go to bed at a reasonable time, 10:00 pm is her preferred time, however is often difficult for her to fall asleep when she would like to sleep. She may sleep 2-4 hours at a time and then wake up feeling as if she cannot go back to sleep. She tries to avoid naps but sometimes she is so sleepy this is difficult. She snores sometimes, does not wake herself gasping for breath. She has some vivid dreams on occasion and sometimes feels that there is somebody lying in bed next to her, as if she cannot move and this may last a minute or two. This is consistent with sleep paralysis. She does not fall asleep at the wheel. She often falls asleep while watching TV in the early evening, then wakes at 11 pm, cannot fall asleep again until 12:15 am or later. She wakes at 7:30 am at the latest, waking at least once at 4:30 am to urinate. She drinks one cup of coffee per day. Legs bother her while she is sleeping misti Charley horse cramps in the right calf. She is not refreshed when she wakes up, is tired in the day and naps. Holly = 18 there is a positive family history of sleep issues with some relative using CPAP; she frequently has trouble sleeping with a cold. She rarely wakes up gasping for breath at night. She occasionally has breathing problems at night observed by others. She constantly sweats excessively at night and occasionally notices her heart pounding her regularly at night. She constantly falls asleep during the day frequently in voluntarily rarely while driving. She rarely falls asleep during physical effort. She occasionally has loss of muscle tone was on motion. She constantly is daytime difficulties due to excessive sleepiness, constantly feels paralyzed on waking or falling asleep and constantly has vivid dreamlike scenes upon awakening or falling asleep. She has occasionally free to go to sleep. She occasionally has nightmares. She frequently remembers her dreams. She constantly has racing thoughts. She frequently has feelings of sadness depression and anxiety. She constantly has muscular tension frequently notices parts of her body jerking and constantly kicks at night. She frequently has probably achy feeling in her legs and constantly has leg pain during the night. She occasionally has morning jaw pain. She occasionally grinds her teeth during sleep. She constantly is bothered by pain during the day and frequently is awakened by pain at night. She constantly wakes up in the morning feeling stiff with sore achy muscles and pain in her neck and spine. She has difficulties with her job due to excessive sleepiness. She has insomnia concentration difficulties headaches and fatigue PMFSH Past Medical History Medical History Allergies Endometriosis Hypersomnia Interstitial cystitis Lump in armpit Lung nodule Psoriatic arthritis Sinusitis Snoring Thyroid disorder Surgical History Surgical History Delivery by section H/O laparoscopy Family History Family History (Reviewed 07/09/20 @ 10:40 by Mitra Torres
[2020-07-09 10:46] VITALS: BMI 27.4
== END 2020-06-11 07:15 | disposition home or self-care (01) ==
LOC: ANHCSM 07:17
PROVIDERS: PCP Family Medicine; Visit Provider Internal Medicine Critical Care Medicine
DX: G47.33 Obstructive sleep apnea (adult) (pediatric) (principal); G47.10 Hypersomnia, unspecified; G47.30 Sleep apnea, unspecified; R91.1 Solitary pulmonary nodule; R06.83 Snoring; R06.02 Shortness of breath; L40.50 Arthropathic psoriasis, unspecified; N30.10 Interstitial cystitis (chronic) without hematuria; N80.9 Endometriosis, unspecified
CPT/HCPCS: 95806

== ENCOUNTER 2020-06-16 09:09 | Outpatient (CLI) | payer OTHER, MEDICAID, SELFPAY ==
--- NOTE | ~2020-06-16 | NM_ITS ---
EXAMINATION: NM kristin stress w perfusion DATE: 06/16/2020 13:01 INDICATION: Chest pain TECHNIQUE: Rest images were obtained following intravenous administration of 9.6 mCi Tc99m tetrofosmi n (Myoview). The patient was infused intravenously with Lexiscan (Regadenoson). Then, 29.1 mCi Tc99m tetrofosmin (Myoview) was administered intravenously, and stress images were obtained. Data was recon structed into short axis and horizontal and vertical long axis SPECT images. Gated SPECT images were also obtained. COMPARISON: None. FINDINGS: There is no definite reversible or fixed perfusion abnormality to suggest ischemia or infar ction. There is normal left ventricular chamber size, wall motion and ejection fraction. Left ventr icular ejection fraction measures 60%. IMPRESSION: 1. Normal myocardial perfusion at rest and during stress. 2. Left ventricular ejection fraction measuring 60%. Reviewed, dictated and finalized at location A.
--- NOTE | 2020-06-16 09:16 | EST_ITS ---
Patient Info Name: Lynne Liang Age: 40 years : 1980 Gender: Female Ht: 62 in Wt: 150 lbs BSA: 1.74 m2 Exam Date: 06/16/2020 11:35 AM Exam Location: [facility] Stress Patient Status: Outpatient Admit Date: 06/16/2020 Staff Ordering Physician: Byron Camejo DO Attending Provider: Byron Camejo DO Exercise Technologist: Jaqui Jaimes RDCS Exercise Physician: Panchito Morales DO Exam Type: CA stress kristin w NM Study Info Indications R07.9 - Chest pain, unspecified Summary 1. 1. Negative lexiscan stress test for ischemic ST changes by ECG criteria. 2. 2. Tachycardia response to lexiscan. 3. 3. Nuclear scan to follow and will be reported separately. Please correlate with it. 4. 4. Patient informed of the above results. Protocol: Lexiscan Stress ECG Details Stage: REST Duration (min): 6 min : 5 sec HR (bpm): 79 SBP (mmHg): 131 DBP (mmHg): 72 Stage: REST Duration (min): 13 min : 42 sec HR (bpm): 91 SBP (mmHg): 131 DBP (mmHg): 72 Stage: STAGE 1 Duration (min): 0 min : 59 sec HR (bpm): 123 SBP (mmHg): 106 DBP (mmHg): 69 Stage: RECOVERY Duration (min): 1 min : 0 sec HR (bpm): 124 SBP (mmHg): 114 DBP (mmHg): 70 Stage: RECOVERY Duration (min): 2 min : 0 sec HR (bpm): 124 SBP (mmHg): 114 DBP (mmHg): 70 Stage: RECOVERY Duration (min): 3 min : 0 sec HR (bpm): 111 SBP (mmHg): 108 DBP (mmHg): 71 Stage: RECOVERY Duration (min): 4 min : 0 sec HR (bpm): 105 SBP (mmHg): 108 DBP (mmHg): 71 Stage: RECOVERY Duration (min): 5 min : 0 sec HR (bpm): 106 SBP (mmHg): 104 DBP (mmHg): 73 Stage: RECOVERY Duration (min): 6 min : 0 sec HR (bpm): 120 SBP (mmHg): 104 DBP (mmHg): 73 Stage: RECOVERY Duration (min): 7 min : 0 sec HR (bpm): 109 SBP (mmHg): 105 DBP (mmHg): 73 Stage: RECOVERY Duration (min): 8 min : 0 sec HR (bpm): 108 SBP (mmHg): 105 DBP (mmHg): 73 Stage: RECOVERY Duration (min): 9 min : 0 sec HR (bpm): 113 SBP (mmHg): 113 DBP (mmHg): 74 Stage: RECOVERY Duration (min): 10 min : 0 sec HR (bpm): 103 SBP (mmHg): 113 DBP (mmHg): 74 Stage: RECOVERY Duration (min): 10 min : 39 sec HR (bpm): 92 SBP (mmHg): 121 DBP (mmHg): 78 Rest HR: 91 bpm Peak HR: 133 bpm Rest Sys BP: 131 mmHg Peak Sys BP: 121 mmHg Max Pred HR: 181 bpm % Max Pred HR: 73 % Target HR: 154 bpm Max RPP: 16,093 bpm*mmHg Termination Reason: Completed protocol Cardiac Symptoms: Headache Total Time: 1 min : 0 sec Rest Schwartz BP: 72 mmHg Peak Schwartz BP: 78 mmHg Total Dose: 0.4 mg Resting ECG Sinus rhythm. Stress ECG Borderline ST-T wave abnormality in ant/inf leads. Arrhythmias None. Report Signatures
--- NOTE | 2020-06-16 09:16 | ECHO_ITS ---
Patient Info Name: Lynne Liang Age: 40 years : 1980 Gender: Female Ht: 62 in Wt: 150 lbs BSA: 1.74 m2 HR: 70 bpm BP: 116 / 76 mmHg Heart Rhythm: Sinus Rhythm Technical Quality: Good Exam Date: 06/16/2020 9:23 AM Exam Location: [facility] Patient Status: Outpatient Admit Date: 06/16/2020 Staff Ordering Physician: Byron Camejo DO Food Preservation Scientist: Yuval Roche RDCS Attending Provider: Byron Camejo DO Referring Physician: Bashir GLASGOW; Exam Type: CA echo doppler color flow Study Info Indications R00.0 - Tachycardia, unspecified Complete two-dimensional, color flow and Doppler transthoracic echocardiogram is performed. Strain analysis performed. History/Risk Factors Tachycardia. Summary 1. Complete two-dimensional, color flow and Doppler transthoracic echocardiogram is performed. 2. Left ventricular chamber dimension is normal. 3. Left ventricular systolic function is normal, estimated at 60-65%. 4. The left ventricular diastolic function is normal. 5. E/e' 7 is not elevated. 6. Global longitudinal strain is normal at -18.1%. 7. There is trace mitral valve regurgitation. 8. No pulmonary hypertension, estimated pulmonary arterial systolic pressure is 27 mmHg. Left Ventricle E/e' 7 is not elevated. Global longitudinal strain is normal at -18.1%. Left ventricular chamber dimension is normal. Left ventricular systolic function is normal, estimated at 60-65%. The left ventricular diastolic function is normal. Right Ventricle Right ventricular chamber dimension is normal. Right ventricular systolic function is normal. Left Atria Left atrial chamber dimension is normal. Right Atria Right atrial chamber dimension is normal. Aortic Valve The aortic valve is not well visualized. There is no aortic valve stenosis. There is no aortic valve regurgitation. Pulmonic Valve There is no pulmonic regurgitation. Mitral Valve There is no mitral valve stenosis. There is trace mitral valve regurgitation. Tricuspid Valve There is no tricuspid valve regurgitation. No pulmonary hypertension, estimated pulmonary arterial systolic pressure is 27 mmHg. Pericardium/Pleural There is no pericardial effusion. Inferior Vena Cava Normal inferior vena cava with >50% collapse upon inspiration consistent with normal right atrial pressure, 5 mmHg. Aorta The aortic root size at the sinus of Valsalva is normal. Left Ventricular Outflow Tract Name Value Normal LVOT 2D LVOT Diameter 2.0 cm LVOT Doppler LVOT Peak Gradient 6 mmHg LVOT Mean Gradient 3 mmHg LVOT VTI 25 cm LVOT VTI/AV VTI Ratio 1.0 LVOT Stroke Volume 76 ml LVOT CO 6.4 l/min LVOT CI 3.6 l/min/m2 Mitral Valve Name Value Normal
== END 2020-06-16 09:10 | disposition home or self-care (01) ==
PROVIDERS: PCP Family Medicine; Visit Provider Family Medicine
DX: R00.0 Tachycardia, unspecified (principal); R07.9 Chest pain, unspecified; R06.00 Dyspnea, unspecified; R06.02 Shortness of breath; R53.83 Other fatigue; D64.9 Anemia, unspecified; N80.9 Endometriosis, unspecified; L40.50 Arthropathic psoriasis, unspecified; N30.10 Interstitial cystitis (chronic) without hematuria; G47.9 Sleep disorder, unspecified; F41.0 Panic disorder [episodic paroxysmal anxiety]
CPT/HCPCS: 78452; 93017; 93306; A9502; J2785

== ENCOUNTER 2020-06-18 01:03 | Outpatient (CLI) | payer OTHER, MEDICAID, SELFPAY ==
[2020-06-18 19:19] LABS: SARS-CoV-2 RNA PCR Negative
== END 2020-06-18 01:04 | disposition home or self-care (01) ==
LOC: ANHCOVIDDT 01:03
PROVIDERS: PCP Family Medicine; Visit Provider Internal Medicine Gastroenterology
DX: Z01.812 Encounter for preprocedural laboratory examination (principal); Z20.828 Contact with and (suspected) exposure to other viral communicable diseases
CPT/HCPCS: 87635; C9803; U0003

== ENCOUNTER 2020-06-20 01:05 | Day surgery (SDC) | payer OTHER, MEDICAID, SELFPAY ==
[2020-06-12 13:40] VITALS: BMI 27.3
[2020-06-20 08:50] VITALS: BP 107/76; PULSE 82; RESP 16; TEMP 36.6; O2SAT 100; BMI 27.3
--- NOTE | 2020-06-20 08:59 | WPDGICN ---
Assessment and Plan Assessment and plan (1) Epigastric abdominal pain: Code(s): R10.13 - Epigastric pain Status: Acute Assessment and Plan: Patient has ongoing epigastric and right upper quadrant pain. Associated with nausea. She has a history of gastritis by recent EGD. In 1 year ago. Plan is to evaluate thoroughly with a follow-up EGD. Recent exams including several visits to the ER laboratory work CT scan ultrasound HIDA scan all are unremarkable. Patient may benefit from a trial of proton pump inhibitor therapy which she has yet to implement. Further recommendations will be given after endoscopy. (2) RUQ abdominal pain: Code(s): R10.11 - Right upper quadrant pain Status: Acute GI Consult Note Consult date/time: 06/20/20 08:59 HPI: Lynne Liang is a 40 year old female Seen in evaluation at the request of Dr. Byron Camejo. Patient reports over the last 4 months of having epigastric substernal pain this seems to persist on the right side of her abdomen. It will fluctuate throughout the day but intensifies after eating. She states is somewhat tender in this area. Recent HIDA scan was unremarkable. Patient has been in the emergency room at [facility] in [facility]. One year ago an EGD was performed which revealed gastritis. Patient also has noticed nausea associated with this discomfort. She currently has been treated with Pepcid 20 mg p.o. b.i.d. with no help in symptoms. It was recommended she try Prilosec but she is not yet implemented this therapy. She also complains of atypical chest pain associated with shortness of breath for which she plans to see Dr. Turner. Review of Systems Review of Systems: All systems reviewed & are unremarkable except as noted in HPI and below PMFSH Past Medical History Medical History (Updated 06/20/20 @ 09:02 by Joselito Merlos MD) Allergies Endometriosis Hypersomnia Interstitial cystitis Lump in armpit Lung nodule Psoriatic arthritis Sinusitis Snoring Thyroid disorder Surgical History Surgical History Delivery by section Family History Family History Other Diabetes mellitus Social History Social History Social History: , one daughter, works at [employer]. 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 Gender identity (if verbalized by the patient): Female Spiritual care concerns: No Meds Home Medications and Allergies Home Medications Medication Instructions Recorded Confirmed Type cholecalciferol (vitamin D3) 25 25 mcg PO DAILY 12/27/19 06/17/20 History mcg (1,000 unit) capsule polyethylene glycol 3350 17 17 gm PO DAILY PRN 12/27/19 06/17/20 History gram/dose oral powder topiramate 25 mg tablet 50 mg PO BID #60 tablet 02/26/20 06/17/20 Rx calcium carbonate 600 mg calcium 600 mg PO DAILY 05/02/20 06/17/20 History (1,500 mg) tablet magnesium 250 mg tablet 250 mg PO DAILY 05/02/20 06/17/20 History mecobalamin (vitamin B12) 5,000 2,500 mcg PO DAILY each 05/02/20 06/17/20 History mcg lozenge multivitamin 1 cap PO DAILY 05/02/20 06/17/20 History azelastine 137 mcg (0.1 %) nasal 1 spray NASAL Q12H #30 ml 05/08/20 06/17/20 Rx spray aerosol fluticasone propionate 50 1 spray NASAL Q12H #15.8 ml 05/08/20 06/17/20 Rx mcg/actuation nasal spray,suspension sumatriptan succinate 100 mg tablet 100 mg PO ONCE PRN #9 tablet 05/12/20 06/17/20 Rx alprazolam 0.25 mg tablet 0.25 mg PO BID PRN #20 tablet 05/26/20 06/17/20 Rx Iron (ferrous sulfate) 06/12/20 06/17/20 History omeprazole magnesium [Prilosec OTC] PO 06/12/20 06/17/20 History fluoxetine 20 mg capsule 20 mg PO DAILY #30 cap 06/17/20 06/17/20 Rx Allergie
[2020-06-20] MEDS: LACTATED RINGERS 1,000 ML 150 ML IV CONT (09:01)
--- NOTE | 2020-06-20 09:06 | WPDANESEPPF ---
Anes - Initial Pre Proc Eval Procedure: Operation Date: 06/20/20 09:30 Proposed Procedures p Esophagogastroduodenoscopy - Joselito Merlos MD Date/Time: 06/20/20 09:06 Surgeon: Joselito Merlos MD Pre Op Diagnosis: Epigastric Pain Patient Data Age: 40 Gender: F Height: 5 ft 2 in Weight: 68 kg Last Vital Signs Temp 98 F 06/20/20 08:50 Pulse 82 06/20/20 08:50 Resp 16 06/20/20 08:50 BP 107/76 06/20/20 08:50 Pulse Ox 100 06/20/20 08:50 Allergies Allergy/AdvReac Type Severity Reaction Status Date / Time Sulfa (Sulfonamide Allergy Intermediate Rash Verified 06/17/20 10:48 Antibiotics) ranitidine Allergy Unknown Itching Verified 06/17/20 10:48 hydrocodone [From Vicodin] AdvReac Unknown Insomnia Verified 06/17/20 10:48 Home Medications Medication Instructions Recorded Confirmed Type cholecalciferol (vitamin D3) 25 25 mcg PO DAILY 12/27/19 06/17/20 History mcg (1,000 unit) capsule polyethylene glycol 3350 17 17 gm PO DAILY PRN 12/27/19 06/17/20 History gram/dose oral powder topiramate 25 mg tablet 50 mg PO BID #60 tablet 02/26/20 06/17/20 Rx calcium carbonate 600 mg calcium 600 mg PO DAILY 05/02/20 06/17/20 History (1,500 mg) tablet magnesium 250 mg tablet 250 mg PO DAILY 05/02/20 06/17/20 History mecobalamin (vitamin B12) 5,000 2,500 mcg PO DAILY each 05/02/20 06/17/20 History mcg lozenge multivitamin 1 cap PO DAILY 05/02/20 06/17/20 History azelastine 137 mcg (0.1 %) nasal 1 spray NASAL Q12H #30 ml 05/08/20 06/17/20 Rx spray aerosol fluticasone propionate 50 1 spray NASAL Q12H #15.8 ml 05/08/20 06/17/20 Rx mcg/actuation nasal spray,suspension sumatriptan succinate 100 mg tablet 100 mg PO ONCE PRN #9 tablet 05/12/20 06/17/20 Rx alprazolam 0.25 mg tablet 0.25 mg PO BID PRN #20 tablet 05/26/20 06/17/20 Rx Iron (ferrous sulfate) 06/12/20 06/17/20 History omeprazole magnesium [Prilosec OTC] PO 06/12/20 06/17/20 History fluoxetine 20 mg capsule 20 mg PO DAILY #30 cap 06/17/20 06/17/20 Rx Patient hx anesthesia problems: none Family hx anesthesia problems: none PMFSH Past Medical History Medical History (Updated 06/20/20 @ 09:02 by Joselito Merlos MD) Allergies Endometriosis Hypersomnia Interstitial cystitis Lump in armpit Lung nodule Psoriatic arthritis Sinusitis Snoring Thyroid disorder Surgical History Surgical History Delivery by section Family History Family History Other Diabetes mellitus Social History Social History Social History: , one daughter, works at [employer]. 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 Questions were solicited and answers provided to the satisfaction of the patient/family/POA.
[2020-06-20] MEDS: BENZOCAINE (*SP) 60 ML SPRAY CAN (HURRICAINE) 1 SPRAY MUCOUS MEM (09:37)
[2020-06-20 09:48] VITALS: BP 80/49; PULSE 73; RESP 16; O2SAT 100
[2020-06-20 09:58] VITALS: BP 98/60; PULSE 71; RESP 16; O2SAT 100
[2020-06-20 10:08] VITALS: BP 103/68; PULSE 73; RESP 16; O2SAT 100
== END 2020-06-20 10:26 | disposition home or self-care (01) ==
PROVIDERS: PCP Family Medicine; Visit Provider Internal Medicine Gastroenterology
PROC: 0DJ08ZZ Inspection of Upper Intestinal Tract, Via Natural or Artificial Opening Endoscopic (ICD-10-PCS; CPT 43235; principal; 2020-06-20 09:30)
DX: R10.13 Epigastric pain (principal); R10.11 Right upper quadrant pain; R11.0 Nausea
CPT/HCPCS: 43239; 87081; J2001; J2405; J2704; J7120

== ENCOUNTER 2021-03-19 11:58 | Emergency (ER) | payer BC, SELFPAY ==
--- NOTE | 2021-03-19 12:01 | ED.EAR ---
HPI - Ear Problem General Chief complaint: Ear Stated complaint: ear pain Time Seen by Provider: 03/19/21 12:20 Source: patient and RN notes reviewed Mode of arrival: ambulatory Limitations: no limitations History of Present Illness HPI Narrative: 40-year-old female presents with concern for bilateral ear pain. Reports left ear pain has been going on for approximately 1.5 weeks, charting we have right ear pain started yesterday. She reports sore throat, rhinorrhea, nasal congestion. She reports occasional cough. She denies shortness of breath, fever, body aches. Reports occasional chills. Reports she has taken [id number] remedies with little relief. MD Complaint: ear pain Related Data Allergies Allergy/AdvReac Type Severity Reaction Status Date / Time ranitidine Allergy Intermediate Itching Verified 03/19/21 12:12 Sulfa (Sulfonamide Allergy Intermediate Rash Verified 03/19/21 12:12 Antibiotics) hydrocodone [From Vicodin] AdvReac Intermediate Insomnia Verified 03/19/21 12:12 Review of Systems Review of Systems: Narrative: CONSTITUTIONAL: Denies malaise, chills, sweats, or fever. EYES: Denies visual changes, redness, or discharge. ENT: Reports rhinorrhea, congestion, bilateral otalgia and sore throat. CARDIOVASCULAR: Denies chest pain, palpitations, or edema. RESPIRATORY: Reports cough. Denies dyspnea. GASTROINTESTINAL: Denies abdominal pain, nausea, vomiting, diarrhea SKIN: Denies rash or itching. MUSCULOSKELETAL: Denies myalgia. NEUROLOGIC: Reports headache. All systems reviewed & are unremarkable except as noted in HPI and below PMFSH Past Medical History Medical History Allergies Endometriosis Hypersomnia Interstitial cystitis Lump in armpit Lung nodule Psoriatic arthritis Sinusitis Snoring Surveillance for Depo-Provera contraception Thyroid disorder Surgical History Surgical History Delivery by section x1 H/O laparoscopy 2019, exploratory Family History Family History Father No problems noted. Mother Diabetes mellitus Social History Social History Social History: , one daughter, works at [employer] Smoking status: Never smoker Alcohol intake: current Alcohol use details: occasionally Substance use: never Additional occupation/education comments: [employer] Gender identity (if verbalized by the patient): Female Spiritual care concerns: No Comments At time of signature, agree with nursing past medical, surgical, social and family history. There is no relevant family history pertinent to the presenting complaint Exam Narrative: Exam Narrative: GENERAL: Well-appearing, well-nourished, and in no acute distress. HEAD: Normocephalic EYES: PERRLA, conjunctivae clear ENT: Nares clear, turbinates edematous and erythematous, clear discharge. Mucous membranes moist. TM pearly esparza with sharp light reflex bilaterally; no tragal tenderness. Oropharynx erythematous without lesions. Tonsils enlarged and without exudate, no drooling, no hoarseness, no trismus, uvula midline. NECK: Supple. No lymphadenopathy CHEST: Clear to auscultation, breath sounds equal. No wheezing, rhonchi, rales, or stridor. No respiratory distress, speaks in full sentences. HEART: Regular rate and rhythm. No murmur heard. SKIN: Warm, dry, no rash. NEURO: Alert and oriented x3. PSYCH: Normal mood and affect Course Course Emergency Course: Patient is aware of diagnosis, understands and agrees to treatment plan. Anticipatory guidance given. Patient agrees to follow-up as directed and is aware of reasons to seek care at the emergency department. Portions of this record may have been created with voice recognition software Vital Signs Julita
[2021-03-19 12:05] VITALS: BP 100/66; PULSE 83; RESP 16; TEMP 37.4; O2SAT 100
[2021-03-19 12:14] VITALS: BP 100/66; PULSE 83; RESP 16; TEMP 37.4; O2SAT 100
== END 2021-03-19 12:43 | disposition home or self-care (01) ==
PROVIDERS: Emergency Provider Nurse Practitioner; PCP Family Medicine
DX: J06.9 Acute upper respiratory infection, unspecified (principal); N80.0 Endometriosis of uterus; L40.50 Arthropathic psoriasis, unspecified
CPT/HCPCS: 87081; 87880; 99213; G0463